=== PATIENT | female | born 1995 ===

== ENCOUNTER 2017-03-04 10:18 | Outpatient (CLI) | payer OTHER ==
--- NOTE | 2017-03-04 11:50 | Ultrasound Report ---
LEFT BREAST ULTRASOUND: 03/04/17 10:18:00 CLINICAL: 21-year-old 18 weeks and a palpable left breast mass. COMPARISON: None. FINDINGS: Ultrasound of the left breast(including all four quadrants and the retroareolar area) was performed. A solid oval heterogeneous hypoechoic mass at 3:30 o'clock 7 cm from the nipple correlates with the palpable lump. It measures 3.5 x 1.5 x 2.5 cm and is wider than tall. IMPRESSION: A probably benign 3.5 cm left breast mass at 3:30 o'clock 7 cm from the nipple. BI-RADS 3 - - Probably Benign RECOMMENDATION: Short-term followup ultrasound in 2 months to reassess size and growth.
== END 2017-03-04 10:19 | disposition home or self-care (01) ==
LOC: SPVWC 10:18
PROVIDERS: ATTEND Obstetrics & Gynecology
DX: N63 Unspecified lump in breast (principal)